=== PATIENT | male | born 1985 | race Caucasian/White ===

== ENCOUNTER → 2017-09-12 | Outpatient (CLI) | payer OTHER | LOC: LAB 12:03 | PROVIDERS: ATTEND Family Medicine Sports Medicine | DX: M25.561 Pain in right knee (principal); M25.562 Pain in left knee | CPT/HCPCS: 36415; 82330; 84443 ==

== ENCOUNTER 2021-03-10 10:59 | Emergency (ER) | payer OTHER ==
[~2021-03-10] VITALS: Ht 180.3 cm; Wt 70.0 kg
[~2021-03-10 10:59] MED LIST: None at this Time
[2021-03-10 12:44] VITALS: BP 124/74
== END 2021-03-10 13:20 | disposition home or self-care (01) ==
LOC: ED 12:40
DX: G89.11 Acute pain due to trauma (principal); M25.531 Pain in right wrist; M79.641 Pain in right hand; M77.8 Other enthesopathies, not elsewhere classified; X58.XXXA Exposure to other specified factors, initial encounter; Y93.89 Activity, other specified; Y92.69 Other specified industrial and construction area as the place of occurrence of the external cause; Y99.8 Other external cause status
CPT/HCPCS: 99284

== ENCOUNTER 2021-03-18 08:00 | Emergency (ER) | payer OTHER ==
[~2021-03-18] VITALS: Ht 180.3 cm; Wt 69.0 kg
[2021-03-18 08:01] VITALS: BP 146/83
--- NOTE | 2021-03-18 09:15 | NUR ---
Patient/Caregiver given discharge instructions and they have confirmed that they understand the instructions. Patient ambulatory with steady gait.
== END 2021-03-18 09:38 | disposition home or self-care (01) ==
LOC: ED 08:05
DX: M77.8 Other enthesopathies, not elsewhere classified (principal); R00.1 Bradycardia, unspecified
CPT/HCPCS: 99281

== ENCOUNTER 2021-04-22 09:02 | Emergency (ER) | payer OTHER ==
[~2021-04-22] VITALS: Ht 180.3 cm; Wt 68.9 kg
--- NOTE | 2021-04-22 09:22 | NUR ---
ASSUMED CARE OF PT. February R WRIST INJURY PAIN PICKING UP 5 POUND BAG. PAIN IN RIGHT SNUFF BOX DENIES N/T. 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
[2021-04-22 09:30] VITALS: BP 122/83
--- NOTE | 2021-04-22 09:30 | NUR ---
TATO BURNS. CALL LIGHT W/IN REACH.
--- NOTE | 2021-04-22 10:06 | NUR ---
PT SITTING IN CHAIR READING PAPER, DENIES ANY NEEDS AT THIS TIME. HE REPORTS THAT PA IS GOING TO SEND REFERRAL TO THE [facility] AND JUST WAITING FOR PAPERWORK. CALL LIGHT W/IN REACH.
--- NOTE | 2021-04-22 10:29 | NUR ---
Patient given discharge instructions and they have confirmed that they understand the instructions. Patient ambulatory with steady gait.
== END 2021-04-22 10:31 | disposition home or self-care (01) ==
LOC: ED 09:25
DX: S53.441A Ulnar collateral ligament sprain of right elbow, initial encounter (principal); M77.8 Other enthesopathies, not elsewhere classified; X58.XXXA Exposure to other specified factors, initial encounter; Y93.89 Activity, other specified; Y92.69 Other specified industrial and construction area as the place of occurrence of the external cause; Y99.8 Other external cause status
CPT/HCPCS: 99283